=== PATIENT | male | born 1975 | race Caucasian/White ===

== ENCOUNTER 2018-03-19 11:35 | Emergency (ER) | payer OTHER, MEDICAID ==
[~2018-03-19] VITALS: Ht 170.2 cm; Wt 77.1 kg
[~2018-03-19 11:35] MED LIST: AZITHROMYCIN 2250 MG PO; BIAXIN 250MG T250 M1 PO; CLEOCIN HCL300 MG PO; DILAUDID2 M1 PO; DOXYCYCLINE 10100 MG PO; E-MYCIN250 MG PO; HUMIRA10 MG/0.2; HYDROCODON-ACE1 EAC4 PO; HYDROCODONE-AP1 EAC1 PO; HYDROCODONE-AP1 EAC6 PO; LISINOPRIL5 MG PO; MEDROL DOSPAK21 TAB PO; MEDROLDOSEPACK PO; METHOTREXATE 22.5 M1 PO; METHOTREXATE 22.5 MG PO; NOHOMEMEDICATIONS; NORCO 10-325 T1 EACH PO; NORCO 5-325 TA1 EACH PO; PERCOCET 5-3251 EACH PO; PERCOCET PO; PREDNISONE 20 M20 M1 PO; PREDNISONE50 MG PO; PREVACID15 MG PO; ROBAXIN 750 MG750 M1 PO; TREXALL10 MG; TRIAMCINOLONE TOP; ULTRAM 50MG TAB50 MG PO; VICODIN; XANAX 0.25 MG0.25 MG PO
[2018-03-19] MEDS ORDERED: ULTRAM 50MG TAB50 MG PO (12:41)
[2018-03-19 12:54] VITALS: BP 137/86
== END 2018-03-19 12:56 | disposition home or self-care (01) ==
LOC: M.ERS 11:35
DX: S43.085A Other dislocation of left shoulder joint, initial encounter (principal); L40.9 Psoriasis, unspecified; Z88.0 Allergy status to penicillin; X50.9XXA Other and unspecified overexertion or strenuous movements or postures, initial encounter; Y93.89 Activity, other specified; Y92.89 Other specified places as the place of occurrence of the external cause; Y99.8 Other external cause status

== ENCOUNTER 2019-11-19 23:32 | Emergency (ER) | payer OTHER, MEDICAID ==
[~2019-11-19] VITALS: Ht 177.8 cm; Wt 86.2 kg
[~2019-11-19 23:32] MED LIST changes: +NEO-POLYMYXIN-H10 ML EA. EAR
[2019-11-20] MEDS ORDERED: MEDROLDOSEPACK PO (00:03)
[2019-11-20] MEDS ORDERED: FLUOCINOLONE AC TOP (00:03)
[2019-11-20] MEDS ORDERED: VIBRAMYCIN 100100 MG PO (00:04)
[2019-11-20 00:33] VITALS: BP 137/99
== END 2019-11-20 00:34 | disposition home or self-care (01) ==
LOC: M.ERS 23:32
PROVIDERS: Personal Emergency Response Attendant
DX: S30.860A Insect bite (nonvenomous) of lower back and pelvis, initial encounter (principal); R21 Rash and other nonspecific skin eruption; Z88.0 Allergy status to penicillin; Z98.890 Other specified postprocedural states; W57.XXXA Bitten or stung by nonvenomous insect and other nonvenomous arthropods, initial encounter; Y93.89 Activity, other specified; Y92.89 Other specified places as the place of occurrence of the external cause; Y99.9 Unspecified external cause status